=== PATIENT | female | born 2000 | race Hispanic/Latino ===

== ENCOUNTER 2022-10-04 17:46 | Emergency (ER) | payer OTHER | END 2022-10-04 19:26 | disposition home or self-care (01) | LOC: CSHERS 17:46 | DX: J02.0 Streptococcal pharyngitis (principal) | CPT/HCPCS: 87430; 99283 ==

== ENCOUNTER 2023-02-06 17:49 | Inpatient (IN) | payer OTHER ==
[~2023-02-06 17:49] MED LIST: Bupivacaine 0.25% HCL 30 ML VIAL ONE
[2023-02-06] MEDS ORDERED: Ibuprofen 800 MG TAB PO PRN (18:23)
[2023-02-06] MEDS ORDERED: Tranexamic Acid 1,000 MG/10 ML VIAL IVP PRN (18:23)
[2023-02-06] MEDS ORDERED: Promethazine HCl 25 MG/ML VIAL IM PRN (18:23)
[2023-02-06] MEDS ORDERED: fentaNYL 50 mcg/mL 1 mL Vial SLOW IVP PRN (18:23)
[2023-02-06] MEDS ORDERED: HYDROcodone/Acetaminophen 5/325 mg Tablet PO PRN (18:23)
[2023-02-06] MEDS ORDERED: hydrALAZINE 20 MG/ML VIAL SLOW IVP PRN (18:23)
[2023-02-06] MEDS ORDERED: Acetaminophen 500 MG TAB PO PRN (18:23)
[2023-02-06] MEDS ORDERED: Misoprostol 200 MCG TAB PR PRN (18:23)
[2023-02-06] MEDS ORDERED: Ondansetron PF 4 MG/2 ML Vial IVP PRN (18:23)
[2023-02-06] MEDS ORDERED: Methylergonovine 0.2 MG/ML VIAL IM PRN (18:23)
[2023-02-06] MEDS ORDERED: Diphenoxylate HCl/Atropine Tablet PO PRN (18:23)
[2023-02-06] MEDS ORDERED: Carboprost 250 MCG/ML AMP IM PRN (18:23)
[2023-02-06] MEDS ORDERED: Lidocaine 1% (PF) 30 ML VIAL SC PRN (18:23)
[2023-02-06 18:30] VITALS: BMI 38.0
[2023-02-06] MEDS ORDERED: NS w/ Oxytocin 30 units 500 ML IV SCH ×3 (18:30)
[2023-02-06] MEDS: Lactated Ringer's 1,000 ML IV SCH (19:12)
[2023-02-06] MEDS: Misoprostol 100 MCG TAB VAG SCH (19:21)
[2023-02-06 19:33] LABS: Hematocrit 30.5 % (34.9-44.5); Mean Corpuscular HGB CONC 32.8 g/dL (32.0-36.0); Mean Corpuscular Hemoglobin 26.6 pg (27.0-33.0); Mean Corpuscular Volume 81.1 fl (81.6-98.3); Platelet Count 214 10x3/uL (150-450); RBC Distribution Width 14.6 % (11.5-14.5); Red Blood Cell (RBC) Count 3.76 10x6/uL (3.90-5.03); White Blood Cell (WBC) Count 9.7 10x3/uL (3.5-10.5)
[2023-02-06 19:56] LABS: Syphilis Antibody Nonreactive (Nonreactive); Syphilis Antibody Index 0.04 S/CO (<1.00 Non-Reactive)
[2023-02-06 19:57] LABS: Hep B Surf Ag - L&D Non-Reactive S/CO (NonReactive)
[2023-02-07] MEDS: Misoprostol 100 MCG TAB VAG SCH ×2 (03:53→15:35)
[2023-02-07] MEDS: Lactated Ringer's 1,000 ML IV SCH ×2 (03:53→15:37)
[2023-02-07] MEDS ORDERED: fentaNYL/Ropivacaine Epidural 100 ML ONE (08:21)
[2023-02-07] MEDS ORDERED: Lanolin Ointment 7 GM TUBE TOP PRN (14:18)
[2023-02-07] MEDS ORDERED: HYDROcodone/Acetaminophen 5/325 mg Tablet PO PRN (14:18)
[2023-02-07] MEDS ORDERED: Boostrix 0.5 ML (Tdap) VIAL (>/=7 yrs of age) IM ONE (14:18)
[2023-02-07] MEDS ORDERED: Bisacodyl 10 MG SUPP PR PRN (14:18)
[2023-02-07] MEDS ORDERED: Preparation H Ointment 28 GM TUBE PR PRN (14:18)
[2023-02-07] MEDS ORDERED: hydrALAZINE 20 MG/ML VIAL SLOW IVP PRN (14:18)
[2023-02-07] MEDS ORDERED: Milk Of Magnesia 30 ML UDCUP PO PRN (14:18)
[2023-02-07] MEDS ORDERED: Ondansetron PF 4 MG/2 ML Vial IVP PRN (14:18)
[2023-02-07] MEDS ORDERED: Promethazine HCl 25 MG/ML VIAL IM PRN (14:18)
[2023-02-07] MEDS ORDERED: diphenhydrAMINE 25 MG CAP PO PRN (14:18)
[2023-02-07] MEDS: Ibuprofen 800 MG TAB PO SCH ×2 (14:34→21:39)
[2023-02-07] MEDS: Ferrous Sulfate 325 MG TAB PO SCH (17:13)
[2023-02-07] MEDS ORDERED: Benzocaine-Menthol 82.5 ML CAN TOP PRN (20:43)
[2023-02-07] MEDS: Docusate 100 MG CAP PO SCH (21:40)
[2023-02-08] MEDS: Ibuprofen 800 MG TAB PO SCH ×3 (05:30→22:03)
[2023-02-08] MEDS: Prenatal Vitamin 1 TAB PO SCH (08:06)
[2023-02-08] MEDS: Docusate 100 MG CAP PO SCH ×2 (08:07→22:04)
[2023-02-08] MEDS: Ferrous Sulfate 325 MG TAB PO SCH (22:04)
[2023-02-09] MEDS: Ibuprofen 800 MG TAB PO SCH ×2 (05:54→13:31)
[2023-02-09 07:42] VITALS: BP 117/57; TEMP 98.1
[2023-02-09] MEDS: Ferrous Sulfate 325 MG TAB PO SCH (13:32)
[2023-02-09] MEDS: Docusate 100 MG CAP PO SCH (13:32)
== END 2023-02-09 13:30 | disposition home or self-care (01) | DRG 807 ==
LOC: CSHLD 17:49 → CSHPED 02-07 15:10
PROVIDERS: ADMIT Family Medicine; ATTEND Family Medicine
PROC: 10E0XZZ Delivery of Products of Conception, External Approach (ICD-10-PCS; principal; 2023-02-07)
PROC: 3E0P7VZ Introduction of Hormone into Female Reproductive, Via Natural or Artificial Opening (ICD-10-PCS; 2023-02-07)
PROC: 0HQ9XZZ Repair Perineum Skin, External Approach (ICD-10-PCS; 2023-02-07)
DX: O36.5930 Maternal care for other known or suspected poor fetal growth, third trimester, not applicable or unspecified (principal); Z37.0 Single live birth; Z3A.37 37 weeks gestation of pregnancy; Z79.899 Other long term (current) drug therapy; O70.0 First degree perineal laceration during delivery
CPT/HCPCS: 36415; 51702; 85027; 86780; 86850; 86900; 86901; 87340; 88307; J3010; J7120; S0020

== ENCOUNTER 2023-05-12 05:16 | Emergency (ER) | payer OTHER ==
[2023-05-12] MEDS ORDERED: Ketorolac Tromethamine 30 MG/ML VIAL ONE (05:49)
[2023-05-12] MEDS ORDERED: Ondansetron PF 4 MG/2 ML Vial ONE (05:49)
[2023-05-12 06:07] LABS: BHCG - Serum Negative (NEGATIVE); Pregs Control Background? CLEAR/WHITE (CLR/WHITE); Pregs Control Bar Appear? YES (CONTROL BAR)
[2023-05-12 06:10] LABS: ALT (SGPT) 75 U/L (8-55); AST (SGOT) 35 U/L (5-34); Albumin 4.3 g/dL (3.5-5.0); Alkaline Phosphatase 130 U/L (40-110); Anion Gap 16 mmol/L (10-20); BUN (Urea Nitrogen) 17 mg/dL (7.0-18.7); Bilirubin, Total 0.4 mg/dL (0.2-1.2); Calc. Creatinine Clearance 0 mL/min (70-130); Calcium 9.5 mg/dL (7.8-10.44); Carbon Dioxide 23 mmol/L (22-29); Chloride 106 mmol/L (98-107); Estimated GFR 127; Globulin 3.3 g/dL (2.4-3.5); Glucose 101 mg/dL (70-105); Lipase 65 U/L (8-78); Potassium 4.1 mmol/L (3.5-5.1); Protein, Total 7.6 g/dL (6.0-8.3); Sodium 141 mmol/L (136-145)
[2023-05-12 06:27] LABS: #Eosinphils 0.2 10x3/uL (0.0-0.5); #Monocytes 0.4 10x3/uL (0.0-1.1); #Neutrophils 5.8 10x3/uL (1.5-8.4); %Basophils 0.4 % (0.0-2.0); %Eosinophils 1.6 % (0.0-6.0); %Monocytes 4.2 % (0.0-10.0); %Neutrophils 61.7 % (40.0-75.0); Hematocrit 35.2 % (34.9-44.5); Hemoglobin 11.8 g/dL (12.0-15.5); Mean Corpuscular HGB CONC 33.5 g/dL (32.0-36.0); Mean Corpuscular Hemoglobin 27.8 pg (27.0-33.0); Platelet Count 181 10x3/uL (150-450); RBC Distribution Width 14.9 % (11.5-14.5); Red Blood Cell (RBC) Count 4.24 10x6/uL (3.90-5.03); White Blood Cell (WBC) Count 9.4 10x3/uL (3.5-10.5)
== END 2023-05-12 10:02 | disposition home or self-care (01) ==
LOC: CSHERS 05:16
DX: K80.70 Calculus of gallbladder and bile duct without cholecystitis without obstruction (principal)
CPT/HCPCS: 76705; 80053; 83690; 84703; 85025; 96374; 96375; J1885; J2405

== ENCOUNTER 2023-12-14 11:07 | Outpatient (CLI) | payer MEDICAID | END 2023-12-14 11:08 | disposition home or self-care (01) | LOC: CSHULT 11:07 | PROVIDERS: ATTEND Nurse Practitioner Family | DX: N93.9 Abnormal uterine and vaginal bleeding, unspecified (principal) | CPT/HCPCS: 76856; 93976 ==

== ENCOUNTER 2025-04-10 23:10 | Emergency (ER) | payer OTHER, MEDICAID ==
[2025-04-10 23:45] LABS: #Basophils Less than 0.03 10x3/uL (0.0-0.2); #Eosinophils 0.11 10x3/uL (0.0-0.5); #Monocytes 0.38 10x3/uL (0.0-1.1); #Neutrophils 4.42 10x3/uL (1.5-8.4); %Basophils 0.3 % (0.0-2.0); %Eosinophils 1.4 % (0.0-6.0); %Lymphocytes 36.9 % (18.0-47.0); %Monocytes 4.8 % (0.0-10.0); %Neutrophils 56.3 % (40.0-75.0); Hematocrit 36.2 % (34.9-44.5); Hemoglobin 12.2 g/dL (12.0-15.5); Mean Corpuscular Hemoglobin 27.9 pg (27.0-33.0); Mean Corpuscular Volume 82.8 fL (81.6-98.3); Platelet Count 220 10x3/uL (150-450); Red Blood Cell (RBC) Count 4.37 10x6/uL (3.90-5.03); White Blood Cell (WBC) Count 7.84 10x3/uL (3.5-10.5)
[2025-04-10 23:46] LABS: Glucose, Urine (Dipstick) Normal (Negative); Leukocyte 100 (Negative); Protein, Urine (Dipstick) 30 mg/dl (Neg-Trace); Specific Gravity, Urine 1.025 (1.005-1.030)
[2025-04-10 23:52] LABS: Bacteria/HPF None Seen HPF (None Seen); CAUTI Indications for Culture Dysuria,urgency,freq; RBC/HPF Greater than 50 HPF (0-3)
[2025-04-10 23:54] LABS: Urine Culture Reflex No No
[2025-04-11 00:02] LABS: ALT (SGPT) 76 U/L (Less than 34); AST (SGOT) 55 U/L (11-34); Albumin 4.1 g/dL (3.1-4.5); Alkaline Phosphatase 88 U/L (40-110); Anion Gap 16 mmol/L (10-20); BUN (Urea Nitrogen) 12 mg/dL (7.0-18.7); Bilirubin, Total 0.2 mg/dL (0.3-1.2); Calc. Creatinine Clearance 0 mL/min (70-130); Calcium 9.3 mg/dL (7.8-10.44); Carbon Dioxide 19 mmol/L (22-29); Chloride 107 mmol/L (98-107); Globulin 3.9 g/dL (2.4-3.5); Glucose 120 mg/dL (70-105); Potassium 3.7 mmol/L (3.5-5.1); Sodium 138 mmol/L (136-145)
== END 2025-04-11 00:30 | disposition home or self-care (01) ==
LOC: CSHERS 23:10
DX: O20.0 Threatened abortion (principal); Z3A.01 Less than 8 weeks gestation of pregnancy
CPT/HCPCS: 36415; 76801; 76856; 80053; 81001; 84702; 85025; 86900; 86901